=== PATIENT | male | born 1955 | race Caucasian/White ===

== ENCOUNTER → 2024-01-22 08:12 | Outpatient (CLI) | payer MEDICARE, SELFPAY ==
--- NOTE | 2024-01-22 08:15 | DI.ECHO.S_ITS ---
[facility] +---------+ [facility] : : [address] : : [place] : : [id number] : : Phone: [phone] Echocardiogram Report + + :Name: PEPE GAMINO Study Date: 01/22/2024 Height: 70 in : :Hospital ReadingLocation: Weight: 265 lb : : Gender: Male BSA: 2.4 m2 : :: 1955 Age: 68 yrs BP: 117/81 mmHg: :Reason For Study: ATHEROSCLEROTIC HEART DISEASE : :Ordering Physician: SURENDRA, : :JUVENTINO Performed By: Lucía Nava : :Referring: JUVENTINO AGOSTO : + + Interpretation Summary The ejection fraction is estimated to be 25-30%. Poor quality imaging is limiting accurate deliniation of wall motion abnormality. However, there is hypokinesis to akinesis in several wall segments. The right ventricle is normal in size and function. Pulmonary artery pressures cannot be estimated because of the lack of a measurable TR jet velocity. The IVC is of normal diameter and collapses greater than 50% with a sniff. This suggests a low right atrial pressure of 3 mm Hg. Both atria are normal in size. There is mild mitral regurgitation. Procedure: A two-dimensional transthoracic echocardiogram with color flow and Doppler was performed. The study quality was technically adequate. The study quality was technically difficult. There is no prior echocardiogram noted for this patient. A contrast injection of Definity was performed to improve assessment of LV function. The patient was in sinus bradycardia with heart rates between 59-66 bpm during the exam. Left Ventricle: The left ventricle is mildly dilated. There is normal left ventricular wall thickness. The ejection fraction is estimated to be 25-30%. Poor quality imaging is limiting accurate deliniation of wall motion abnormality. However, there is hypokinesis to akinesis in several wall segments. Right Ventricle: The right ventricle is normal in size and function. Atria: The left atrial size is normal. Both atria are normal in size. Right atrial size is normal. There is no Doppler evidence for an interatrial shunt. Mitral Valve: The mitral valve leaflets appear mildly thickened, but open well. There is mild mitral regurgitation. Aortic Valve: The aortic valve is trileaflet. The aortic valve opens well. There is no aortic valve stenosis. No aortic regurgitation is present. Tricuspid Valve: The tricuspid valve is not well visualized, but is grossly normal. There is trace tricuspid regurgitation. Pulmonary artery pressures cannot be estimated because of the lack of a measurable TR jet velocity. Pulmonic Valve: The pulmonic valve is not well seen, but is grossly normal. There is no pulmonic valvular regurgitation. Great Vessels: The ascending aorta is mildly enlarged. The IVC is of normal diameter and collapses greater than 50% with a sniff. This suggests a low right atrial pressure of 3 mm Hg. Pericardium/ Pleura There is no pericardial effusion. There is no pleural effusion. MMode/2D Measurements & Calculations LVIDd: 6.1 cm LVOT diam: 2.1 cm LVIDs: 4.7 cm asc Aorta Diam: 4.0 cm FS: 23.3 % Ao Arch Diam (Prox Trans): 3.1 cm IVSd: 1.0 cm LVPWd: 0.71 cm LV sheppard. diameter/BSA (cm/m^2): 2.6 LV sys. diameter/BSA (cm/m^2): 2.0 LA A2 area: 17.9 cm2 RA long axis: 5.6 cm LA A4 area: 24.8 cm2 RA area: 16.9 cm2 LA length (vol): 6.2 cm RA vol: 43.4 ml LA vol: 60.2 ml RA : 18.5 ml/m2 LA vol index: 25.6 ml/m2 IVC diam: 1.1 cm RVD1 (basal): 3.8 cm TAPSE: 1.8 cm Doppler Measurements & Calculations Ao V2 max: 132.1 cm/sec LVOT Max Rafael: 104.8 cm/sec Ao V2 mean: 98.6 cm/sec LV V1 max P.4 mmHg Ao max P.0 mmHg LV V1 VTI: 23.8 cm Ao mean P.2 mmHg HORTENSIA(I,D): 3.2 cm2 Ao V2 VTI: 25.5 cm HORTENSIA(V,D): 2.7 cm2 sev ratio: 0.93 HORTENSIA indexed to BSA (cm^2/m^2): 1.3 MV E max rafael: 72.8 cm/sec PA V2 max: 83.9 cm/sec MV A max rafael: 65.0 cm/sec PA V2 mean: 58.0 cm/sec MV E/A: 1.1 PA mean P.5 mmHg Med Peak E' Rafael: 5.5 cm/sec PA pr(Accel): 31.0 mmHg E/E' med: 13.3 Lat Peak E' Rafael: 6.6 cm/sec E/E' lat: 11.0 E/e' average: 12.1 MV dec time: 0.27 sec SV(LVOT): 80.5 ml Reading Physician:DEUCE
== END ==
LOC: ECHO 08:14
PROVIDERS: PCP Internal Medicine; Referring Provider Internal Medicine; Visit Provider Internal Medicine
DX: I34.0 Nonrheumatic mitral (valve) insufficiency (principal); I25.10 Atherosclerotic heart disease of native coronary artery without angina pectoris; I77.89 Other specified disorders of arteries and arterioles
CPT/HCPCS: C8929; Q9957

== ENCOUNTER → 2024-05-09 11:52 | Outpatient (CLI) | payer MEDICARE, SELFPAY ==
--- NOTE | 2024-05-11 17:58 | DI.NM.S_ITS ---
DATE OF SERVICE: 05/11/2024 PROCEDURE: Pharmacological perfusion study. INDICATIONS: HFrEF with severe ischemic cardiomyopathy with history of coronary artery disease, previous PCI. RADIOPHARMACEUTICAL: 24.6 mCi technetium-99m Myoview IV was injected at stress and 26.6 mCi technetium-99m Myoview IV was injected at rest. CARDIAC STRESS: The patient underwent IV Lexiscan perfusion study as per standard protocol. The patient remained hemodynamically stable. Baseline blood pressure 140/88. Baseline rhythm is sinus with QS complexes in V1 to V4, suggestive of old anterior wall PR, low-voltage complexes. During stress, no convincing ischemic changes. Rare PVCs. No chest pain. RAW DATA: There is increased subdiaphragmatic activity. GATED STUDY: Stress LV ejection fraction 40% with significant hypokinesis of distal LV segments including apex. Dilated LV with resting end-diastolic volume 202 mL. TID ratio 1.09, which is within normal limits. MYOCARDIAL PERFUSION SCAN: Stress supine, resting supine, and stress prone images were compared to each other. There appears to be predominantly fixed, large size, severely decreased perfusion of mid-to- distal anterior wall extending into the entire apex, distal inferior wall as well as [id number] septum consistent with prior infarction involving proximal LAD which appears to be wrap-around LAD. No significant reversible ischemia. Summed stress score 26, summed rest score 28. CONCLUSION: This is an abnormal myocardial perfusion study consistent with prior large infarction in the proximal LAD territory as stated above without any significant reversible ischemia. Stress left ventricular ejection fraction 40%. On surface EKG, evidence of old anterior wall PR. No significant arrhythmias. No anginal symptoms. Correlate clinically. Ramon Pruett - CODING TEAM LEAD/fn/WI doc#: [id number]/job#: [id number] dd: 05/11/2024 16:52:00 dt: 05/11/2024 17:49:00 DICTATING MD/COPIES TO: Harper Baker MD COPIES MNE: RAYMOND;
== END ==
PROVIDERS: PCP Internal Medicine; Referring Provider Internal Medicine Cardiovascular Disease; Visit Provider Internal Medicine Cardiovascular Disease
DX: I50.20 Unspecified systolic (congestive) heart failure (principal); I25.10 Atherosclerotic heart disease of native coronary artery without angina pectoris; R06.02 Shortness of breath; R94.39 Abnormal result of other cardiovascular function study
CPT/HCPCS: 78452; 93017; A9502; J2785

== ENCOUNTER → 2025-05-27 09:04 | Outpatient (CLI) | payer MEDICARE, SELFPAY ==
--- NOTE | 2025-05-27 09:06 | DI.MRI.S_ITS ---
PROCEDURE: MR CERVICAL SPINE WO CON INDICATIONS: Radiculopathy, cervical region TECHNIQUE: Noncontrast sagittal T1 spin echo and T2 fast spin echo, sagittal STIR, foraminal oblique sagittal T2 fast spin echo, and axial gradient echo or T2 fast spin echo through the cervical spine. COMPARISON: None. FINDINGS: Image quality: Excellent. Alignment and Curvature: Straightening and mild reversal the normal cervical lordosis. Bone Marrow: Marrow demonstrates normal overall signal. Spinal Cord: Visualized spinal cord has normal size and signal. No cerebellar tonsillar herniation. Paraspinous Soft Tissues: No paravertebral masses. Prevertebral soft tissues are normal in thickness. C2-C3: No central canal or neural foraminal stenosis. C3-C4: Disc desiccation and mild posterior disc osteophyte complex. Facet and uncovertebral arthropathy. No central canal stenosis. Moderate bilateral neural foraminal stenosis. C4-C5: Disc desiccation and mild posterior disc osteophyte complex. Facet and uncovertebral arthropathy. Mild central canal stenosis. Severe bilateral neural foraminal stenosis. C5-C6: Disc desiccation and posterior disc osteophyte complex. Facet and uncovertebral arthropathy. Moderate central canal stenosis. Severe bilateral neural foraminal stenosis. C6-C7: Disc desiccation and posterior disc osteophyte complex asymmetric to the left with abutment and mild mass effect on the cord. Facet and uncovertebral arthropathy. Moderate central canal stenosis. Severe bilateral neural foraminal stenosis. C7-T1: Disc desiccation. Mild facet and uncovertebral arthropathy. No significant central canal or neural foraminal stenosis. IMPRESSION: 1. Multilevel degenerative changes of the cervical spine as described above. 2. Moderate central canal stenosis at C5-C6 and C6-C7. 3. Severe bilateral neural foraminal stenosis at C4-C5, C5-C6 and C6-C7. Dictated by: Reynaldo Barton M.D. on 05/29/2025 at 12:55 Approved by: Reynaldo Barton M.D. on 05/29/2025 at 13:02
== END ==
PROVIDERS: PCP Internal Medicine; Referring Provider Orthopaedic Surgery; Visit Provider Orthopaedic Surgery
DX: M47.23 Other spondylosis with radiculopathy, cervicothoracic region (principal); M47.22 Other spondylosis with radiculopathy, cervical region; M48.02 Spinal stenosis, cervical region; M25.78 Osteophyte, vertebrae
CPT/HCPCS: 72141